=== PATIENT | male | born 1985 | race Caucasian/White ===

== ENCOUNTER 2016-11-02 00:27 | Emergency (ER) ==
--- NOTE | 2016-11-02 00:57 | PROVIDER DOCUMENTATION ---
HPI-Male Problem - General Chief Complaint: Male Stated Complaint: MALE Time Seen by Provider: 11/02/16 00:44 Source: patient Allergies/Adverse Reactions: Patient Allergies Allergy/AdvReac Type Severity Reaction Status Date / Time No Known Allergies Allergy Verified 04/25/16 00:43 Home Medications: Home Medication List Medication Instructions Recorded Confirmed Last Taken Type Aspirin 81 mg PO DAILY 05/10/12 07/25/16 07/25/16 07:00 History 81 MG Mycophenolate Sodium [Myfortic] 180 mg PO BID 05/10/12 07/25/16 07/25/16 07:00 History 180 MG Prednisone 10 mg PO DAILY 05/10/12 07/25/16 07/25/16 07:00 History 10 MG Tacrolimus [Prograf] 1 mg PO BID 05/10/12 07/25/16 07/25/16 07:00 History 1 MG Ondansetron HCl [Zofran] 1 - 2 tab PO Q6H PRN PRN #15 tablet 07/21/16 07/25/16 07/25/16 07:00 Rx 1 - 2 TAB Promethazine [Phenergan] 1 - 2 tab PO Q6H PRN PRN #18 tablet 07/21/16 07/25/16 07/25/16 07:00 Rx 1 - 2 TAB Amlodipine Besylate [Norvasc] 5 mg PO DAILY 07/25/16 07/25/16 07/25/16 07:00 History 5 MG B12/Levomefolate Calcium/B-6 1 tab PO DAILY 07/25/16 07/25/16 07/25/16 07:00 History [Folbic Rf Tablet] 1 TAB Omeprazole 20 mg PO DAILY 07/25/16 07/25/16 07/25/16 07:00 History 20 MG Benzonatate [Tessalon] 100 mg PO TID PRN PRN #30 capsule 07/30/16 Unknown Rx Fluconazole [Diflucan] 400 mg PO ONCE #100 tablet 07/30/16 Unknown Rx - History of Present Illness-Male Nature of Presenting Problem: 31 year old male presents to the ER with complaint of pain to penis and groin. Pt states that during sexual intercourse, he heard a "pop". Now states that it hurts up into groin area. Location of Complaint: reports: groin, scrotal Onset/Duration: reports: last night Timing: reports: still present Review of Systems - Adult - REVIEW OF SYSTEMS - ADULT Constitutional: denies: chills, fever Eyes: reports: no symptoms reported Ears, Nose, Mouth & Throat: reports: no symptoms reported Cardiovascular: reports: no symptoms reported Respiratory: reports: no symptoms reported Gastrointestinal: reports: no symptoms reported Genitourinary: reports: no symptoms reported Musculoskeletal: reports: no symptoms reported Integumentary: reports: no symptoms reported Neurological: reports: no symptoms reported Psychiatric: reports: no symptoms reported Endocrine: reports: no symptoms reported Hematologic/Lymphatic: reports: no symptoms reported Allergic/Immunologic: reports: no symptoms reported All Other Systems: Reviewed and Negative Past History - Adult - PAST MEDICAL HISTORY-ADULT Review of Records: reports: Nursing Assessment Review, Medications Reviewed Major Childhood Illnesses: reports: denies history Cardiovascular: reports: HTN Respiratory: reports: denies history Gastrointestinal: reports: GERD Obstetrical/Gynecological: reports: denies history Genitourinary: reports: kidney disease (2 kidney transplants) Musculoskeletal: reports: denies history Neurological: reports: denies history Endocrine/Immune: reports: denies history Other Conditions: reports: denies history - PRIOR SURGERIES/PROCEDURES Surgical/Procedure History: reports: cholecystectomy, other (2 kidney transplants) - IMMUNIZATION STATUS Childhood Immunizations: See Nurse Assessment Flu Vaccine: See Nurse Assessment - FAMILY HISTORY Family History: reviewed, not pertinent Physical Exam-General - CONSTITUTIONAL General Appearance: alert, no apparent distress - EYES Eyes: PERRL/EOMI, pink conjunctivae - HEAD, EARS, NOSE, MOUTH & THROAT HENMT: normocephalic/atraumatic, moist mucous membranes - NECK Neck: non-tender, supple - RESPIRATORY Respiratory: lungs clear, normal breath sounds - CARDIOVASCULAR Cardiovascular: normal peripheral pulses, regular rate, rhythm - MUSCULOSKELETAL Extremity: non-tender, normal gait - SKIN Integumentary: normal color, warm/dry - NEUROLOGIC Neurologic: grossly normal, no motor/sensory deficits - PSYCHIATRIC Psych/Mental Status: normal mood/affect, normal thought content, normal thought process, oriented x 3 Attestation - Scribe Verification/Attestation Scribe:: Olga Dickinson Acting as Scribe for:: Cortez Berg Scribe documention review:: This chart was documented by a scribe and accurately reflects the service the provider performed and the decisions made by the provider.
[2016-11-02 01:06] LABS: URINE SOURCE VOIDED
[2016-11-02 01:15] LABS: UR AMPHETAMINES QUAL NONE DETECTED (NONE DETECT); UR BARBITUATES QUAL NONE DETECTED (NONE DETECT); UR BENZODIAZEPIN QUAL NONE DETECTED (NONE DETECT); UR CANNABINOIDS QUAL NONE DETECTED (NONE DETECT); UR COCAINE QUAL NONE DETECTED (NONE DETECT); UR MDMA QUAL NONE DETECTED (NONE DETECT); UR METHADONE QUAL NONE DETECTED (NONE DETECT); UR METHAMPHETAMINE QUAL NONE DETECTED (NONE DETECT); UR OPIATES QUAL NONE DETECTED (NONE DETECT); UR OXYCODONE QUAL NONE DETECTED (NONE DETECT); UR PCP QUAL NONE DETECTED (NONE DETECT); UR TCA QUAL NONE DETECTED (NONE DETECT)
[2016-11-02 01:25] LABS: BILIRUBIN URINE NEGATIVE (NEGATIVE); BLOOD URINE NEGATIVE (NEGATIVE); CLARITY CLEAR (CLEAR); COLOR YELLOW; LEUKOCYTES URINE NEGATIVE (NEGATIVE); NITRITE URINE NEGATIVE (NEGATIVE); PROTEIN URINE TRACE mg/dL (NEGATIVE); URINE MICROSCOPIC NEEDED? YES; UROBILINOGEN URINE NORMAL
[2016-11-02 01:28] LABS: URINE EPITHELIAL CELLS <10 /HPF (<10); URINE RBC <10 /HPF (<10); URINE WBC <10 /HPF (<10)
[2016-11-02 03:34] VITALS: BP 159/96
--- NOTE | 2016-11-02 11:09 | Diag Imaging Result Document ---
PROCEDURE NAME: US SCROTUM - 11/02/2016 SCROTAL ULTRASOUND: COMPARISON: None available. FINDINGS: The testicles are grossly normal in echotexture with no cystic or solid parenchymal lesions identified. Both testicles exhibit normal Doppler flow with no sonographic evidence of torsion. The right testicle and left testicle measure up to 3.9 cm in the greatest dimensions. There is a 6-mm left epididymal cyst. The left and right epididymis are grossly unremarkable, otherwise. There is a trace left hydrocele. No varicocele is identified. IMPRESSION: Trace left hydrocele and small left epididymal cyst. Essentially unremarkable, otherwise with no evidence of testicular torsion by ultrasound.
== END 2016-11-02 03:54 | disposition home or self-care (01) ==
LOC: P.ED 00:27
DX: N50.89 Other specified disorders of the male genital organs (principal); N50.82 Scrotal pain; N48.89 Other specified disorders of penis; R10.30 Lower abdominal pain, unspecified; I10 Essential (primary) hypertension; K21.9 Gastro-esophageal reflux disease without esophagitis; Z94.0 Kidney transplant status; Z79.899 Other long term (current) drug therapy; Z79.51 Long term (current) use of inhaled steroids; Z79.82 Long term (current) use of aspirin
CPT/HCPCS: 76870; 80305; 81001

== ENCOUNTER 2019-07-18 11:39 | Inpatient (IN) ==
[2019-07-18] MEDS ORDERED: ZOFRAN IV ONE (12:03)
[2019-07-18] MEDS ORDERED: NS 500 ML IV ONE (12:03)
--- NOTE | 2019-07-18 12:11 | PROVIDER DOCUMENTATION ---
HPI-Syncope/Dizziness - General Chief Complaint: Syncope Stated Complaint: SYNCOPE, FALL Time Seen by Provider: 07/18/19 11:55 Source: patient Allergies/Adverse Reactions: Patient Allergies Allergy/AdvReac Type Severity Reaction Status Date / Time No Known Allergies Allergy Verified 07/18/19 11:50 Home Medications: Home Medication List Medication Instructions Recorded Confirmed Last Taken Type Furosemide 40 mg PO DAILY 07/18/19 07/18/19 Unknown History Levofloxacin [Levaquin] 750 mg PO DAILY 07/18/19 07/18/19 Unknown History Losartan Potassium 25 mg PO DAILY 07/18/19 07/18/19 Unknown History Mycophenolate Sodium [Mycophenolic 180 mg PO BID 07/18/19 07/18/19 Unknown History Acid] Prednisone 10 mg PO DAILY 07/18/19 07/18/19 Unknown History Tacrolimus 0.5 mg PO BID 07/18/19 07/18/19 Unknown History - History of Present Illness-Syncope/Dizzy Nature of Presenting Problem: Patient is a 34 yowm who presents via EMS following a syncopal episode. States he bent over and when he stood back up, he became lightheaded and passed out. Prior to bending over, he states he felt "pop" in the RLQ of his abdomen and still has pain in this region. C/o left rib pain from the fall, did strike his head on wood when he fell. Reports recent diagnosis of pneumonia, completed Levaquin today and states he does not feel better. Hx of 2 renal transplants. Also reports nausea x 2 days, last emesis was yesterday. Denies fever or any other complaints. He is neurologically intact during exam. Review of Systems - Adult - REVIEW OF SYSTEMS - ADULT Constitutional: reports: no symptoms reported. denies: chills, fever Eyes: reports: no symptoms reported Ears, Nose, Mouth & Throat: reports: no symptoms reported Cardiovascular: reports: see HPI, syncope. denies: chest pain, palpitations Respiratory: reports: see HPI, cough Gastrointestinal: reports: see HPI, abdominal pain, nausea, vomiting Genitourinary: reports: no symptoms reported Musculoskeletal: reports: see HPI, other (rib pain). denies: back pain, neck pain Integumentary: reports: no symptoms reported Neurological: reports: see HPI, syncope (head injury). denies: numbness, paresthesia, seizure Psychiatric: reports: no symptoms reported Endocrine: reports: no symptoms reported Hematologic/Lymphatic: reports: no symptoms reported Allergic/Immunologic: reports: no symptoms reported All Other Systems: Reviewed and Negative Past History - Adult - PAST MEDICAL HISTORY-ADULT Review of Records: reports: Nursing Assessment Review, Medications Reviewed, Social history reviewed & non-contributory. Major Childhood Illnesses: reports: denies history Cardiovascular: reports: HTN Respiratory: reports: denies history Gastrointestinal: reports: GERD Obstetrical/Gynecological: reports: denies history Genitourinary: reports: kidney disease (2 kidney transplants) Musculoskeletal: reports: denies history Neurological: reports: denies history Endocrine/Immune: reports: denies history Other Conditions: reports: denies history - PRIOR SURGERIES/PROCEDURES Surgical/Procedure History: reports: cholecystectomy, other (2 kidney transplants) - IMMUNIZATION STATUS Childhood Immunizations: See Nurse Assessment Flu Vaccine: See Nurse Assessment - FAMILY HISTORY Family History: reviewed, not pertinent - SOCIAL HISTORY Smoking: quit less than 1 year Physical Exam-General - PHYSICAL EXAM-ADULT Initial Vital Signs Reviewed: Yes - CONSTITUTIONAL General Appearance: alert, no apparent distress. negative: lethargic, slow to respond - EYES Eyes: PERRL/EOMI, pink conjunctivae - HEAD, EARS, NOSE, MOUTH & THROAT HENMT: normocephalic/atraumatic, moist mucous membranes - NECK Neck: non-tender, full range of motion, supple, normal inspection. negative: C- spine tenderness - RESPIRATORY Respiratory: lungs clear, normal breath sounds, no respiratory distress, no accessory muscle use, other (left rib region tender to palpation) - CARDIOVASCULAR Cardiovascular: normal peripheral pulses, regular rate, rhythm, no edema, no gallop, no JVD, no murmur - GASTROINTESTINAL (ABDOMEN) Abdominal Exam: normal bowel sounds, soft, tenderness (RLQ), McBurney's point tenderness. negative: distended, guarding, rigid, rebound - MUSCULOSKELETAL Back Exam: normal inspection Extremity: normal range of motion, non-tender, normal inspection, pelvis stable - SKIN Integumentary: normal color, warm/dry. negative: cyanosis, diaphoresis, ja undice, mottled, pallor - NEUROLOGIC Neurologic: channel lip wetter II-XII nml as tested, grossly normal, no motor/sensory deficits. negative: facial droop, focal weakness, motor weakness, sensory deficit - PSYCHIATRIC Psych/Mental Status: normal mood/affect, normal thought content, normal thought process, oriented x 3 Progress - PLAN OF CARE/RESULTS Progress/Plan/Lab Results: Vital Signs - 8 hr 07/18/19 11:44 Temperature 97.4 F L Pulse Rate 107 H Respiratory Rate 17 Blood Pressure 110/79 O2 Sat by Pulse Oximetry 98 Laboratory Results - last 24 hr 07/18/19 07/18/19 07/18/19 12:25 12:25 12:25 WBC 12.15 H RBC 2.87 L Hgb 8.3 L Hct 26.5 L MCV 92.3 MCH 28.9 MCHC 31.3 L RDW Std Deviation 15.5 H Plt Count 278 MPV 8.5 Immature Gran % (Auto) 0.7 H Neut % (Auto) 87.6 H Lymph % (Auto) 3.7 L Taylor % (Auto) 6.3 Eos % (Auto) 1.5 Baso % (Auto) 0.2 Immature Gran # (Auto) 0.08 H Neut # (Auto) 10.65 H Lymph # (Auto) 0.45 L Taylor # (Auto) 0.77 H Eos # (Auto) 0.18 Baso # (Auto) 0.02 Sodium 136 Potassium 4.8 Chloride 96 L Carbon Dioxide 21 L Anion Gap 19 BUN 74 H Creatinine 7.6 H Estimated GFR/1.73 m2 8 BUN/Creatinine Ratio 10 Glucose 131 H Calculated Osmolality 296 Calcium 8.7 L Magnesium 2.1 Total Bilirubin 0.20 AST 20 ALT 21 Alkaline Phosphatase 60 Troponin T 0.062 Total Protein 5.9 L Albumin 3.9 Globulin 2.0 Albumin/Globulin Ratio 2.0 Influenza A (Rapid) Influenza B (Rapid) 07/18/19 12:30 WBC RBC Hgb Hct MCV MCH MCHC RDW Std Deviation Plt Count MPV Immature Gran % (Auto) Neut % (Auto) Lymph % (Auto) Taylor % (Auto) Eos % (Auto) Baso % (Auto) Immature Gran # (Auto) Neut # (Auto) Lymph # (Auto) Taylor # (Auto) Eos # (Auto) Baso # (Auto) Sodium Potassium Chloride Carbon Dioxide Anion Gap BUN Creatinine Estimated GFR/1.73 m2 BUN/Creatinine Ratio Glucose Calculated Osmolality Calcium Magnesium Total Bilirubin AST ALT Alkaline Phosphatase Troponin T Total Protein Albumin Globulin Albumin/Globulin Ratio Influenza A (Rapid) NEGATIVE Influenza B (Rapid) NEGATIVE Orders Category Date Time Status Cardiac Monitoring DIRECTED Care 07/18/19 12:03 Active Cardiac Monitoring DIRECTED Care 07/18/19 13:10 Active ED: Orthostatic Vital Signs (E DIRECTED Care 07/18/19 12:03 Active IV Insertion ORDERED Care 07/18/19 13:10 Completed Notify MD of + Sepsis Screen NOW Care 07/18/19 13:10 Active Notify Physician As Ordered Care 07/18/19 13:10 Active Nursing- Obtain EKG ONCE Care 07/18/19 12:03 Active CHEST-2 VIEWS [RAD] Stat Exams 07/18/19 12:[address] ABDOMEN/PELVIS W/O CONTRAST [CT] Stat Exams 07/18/19 12:[address] HEAD W/O CONTRAST [CT] Stat Exams 07/18/19 12:03 Completed RIBS ONLY LEFT [RAD] Stat Exams 07/18/19 12:03 Completed BLOOD CULTURE [BLDCUL] Stat Lab 07/18/19 12:29 Ordered BLOOD CULTURE [BLDCUL] Stat Lab 07/18/19 12:46 Ordered CBC WITH DIFF [HEME] Stat Lab 07/18/19 12:25 Results CK PROFILE [SP CHEM] Stat Lab 07/18/19 13:10 Ordered COMPREHENSIVE METABOLIC PANEL [CHEM] Stat Lab 07/18/19 12:25 Completed Flu [INFLUENZA SCREEN PL] Stat Lab 07/18/19 12:30 Completed LACTATE, PLASMA [CHEM] Lab 07/18/19 12:00 Ordered LACTATE, PLASMA [CHEM] Lab 07/18/19 12:46 Ordered LACTATE, PLASMA [CHEM] Lab 07/18/19 16:15 Uncollected LACTATE, PLASMA [CHEM] Lab 07/18/19 19:15 Uncollected MAGNESIUM [CHEM] Stat Lab 07/18/19 12:25 Completed PROTIME WITH INR [COAG] Stat Lab 07/18/19 12:46 Ordered PTT [COAG] Stat Lab 07/18/19 12:46 Ordered TROPONIN T Stat Lab 07/18/19 12:25 Completed TROPONIN T Stat Lab 07/18/19 12:46 Ordered UA NIMS W/REFLEX CULT [URINALYSIS] Stat Lab 07/18/19 12:03 Uncollected URINALYSIS W/POSS RFLX CULT [URINALYSIS] Stat Lab 07/18/19 13:10 Uncollected 0.9% Sodium Chloride Inj [Ns] 1,000 ml Med 07/18/19 12:15 Active IV 100 mls/hr 0.9% Sodium Chloride Inj [Ns] 500 ml Med 07/18/19 12:03 Discontinued IV 999 mls/hr CefTRIAXONE [Rocephin] 1 gm Med 07/18/19 13:00 Active 0.9% Sodium Chloride Inj [Ns] 50 ml IV NOW Ondansetron [Zofran] Med 07/18/19 12:03 Discontinued 4 mg IV NOW ONE Piperacillin/Tazobactam [Zosyn] 2.25 gm Med 07/18/19 13:01 Active 0.9% Sodium Chloride Inj [Ns] 50 ml IV NOW Oxygen Device Stat Oth 07/18/19 13:10 Active EKG [EKG] Stat Ther 07/18/19 12:03 Draft Result Diagrams: 07/18/19 12:25 07/18/19 12:25 - EKG 1 Time of EKG reading by physician:: 12:30 EKG Read and Signed by:: Jeramy Wadsworth EKG Interpretation (*Must complete 3 of following elements*): Abnormal Rate: 112 Rhythm: sinus tachycardia QRS: normal ST Wave: normal - XRAY 1 XRAY Study: Chest ([facility] - [address] [place] [address] [place] [id number] [facility] - [address] [place] [address] Department of Imaging Patient: SARATH COLE Date: 07/18/19#: [id number] : 1985ADM Status: REG [facility]#: [id number] Age/Sex: 34/MRoom/Bed: Loc: P.ED Ordering Physician: Santa Galdamez Family Physician: None,PCP Reason for Procedure: recent pne, syncope, continued cough Signed CHEST-2 VIEWS - 07/18/2019 INDICATION: recent pne, syncope, continued cough COMPARISON: 07/11/2019 FINDINGS: There is significant infiltrate throughout the right upper lobe. There is also some hazy infiltrate in the left upper lobe. Stable nodular density in the left lung base. Heart size is normal. No pneumothorax or pleural effusion. IMPRESSION: 1. Significant worsening infiltrates in the upper lobes bilaterally suggesting atypical or viral pneumonia. 2. Stable long- standing pulmonary nodule in the left lung base. Electronically signed by Arnie Mallory 07/18/2019 12:50 PM 07/18/19 1250 Interpreting Physician: Arnie Mallory MD Dictated Date/Time: 07/18/19 1249 cc: Santa Galdamez; None,PCP) 2 XRAY: Left XRAY Study: Ribs ([facility] - [address] [place] [address] [address] [address] [facility] - [address] [place] [address] Department of Imaging Patient: SARATH COLE Date: 07/18/19MR#: [id number] : 1985ADM Status: REG ERAcct#: [id number] Age/Sex: 34/MRoom/Bed: Loc: P.ED Ordering Physician: Santa Galdamez Family Physician: None,PCP Reason for Procedure: fall, left rib pain ___ Signed RIBS ONLY LEFT - 07/18/2019 INDICATION: fall, left rib pain TECHNIQUE: Four views COMPARISON: None FINDINGS: The left-sided ribs are intact and well mineralized. IMPRESSION: Negative exam. Electronically signed by Arnie Mallory 07/18/2019 12:52 PM 07/18/19 1252 Interpreting Physician: Arnie Mallory MD Dictated Date/Time: 07/18/19 1251 cc: Santa Galdamez; None,PCP), other - CT/MRI 1 CT Study: Head ([facility] - [address], [address], [place] [address] [address] Department of Imaging Patient: SARATH COLE Date: 07/18/19MR#: [id number] : 1985ADM Status: [facility]#: [id number] Age/Sex: 34/MRoom/Bed: Loc: P.ED Ordering Physician: Santa Galdamez Family Physician: None,PCP Reason for Procedure: trauma Signed CT HEAD W/O CONTRAST - 07/18/2019 INDICATION: trauma COMPARISON: 07/30/2016 FINDINGS: The ventricles and sulci are normal in size and contour. No intracranial mass or hemorrhage. The skull is intact. There is severe fluid opacification of both sphenoid sinuses compatible with sinusitis. The mastoids and middle ears are clear. IMPRESSION: Bilateral sphenoid sinusitis. No acute injury. This exam was performed using automated exposure control, adjustment of mA or kV according to patient size, and/or use of iterative reconstruction technique Electronically signed by Arnie Mallory 07/18/2019 12:44 PM 07/18/19 1244 Interpreting Physician: Arnie Fields MD Dictated Date/Time: 07/18/19 1243 cc: Santa Galdamez; None,PCP) 2 CT Study: Abdomen, Pelvis ([facility] - [address], [address], [place] [address] [facility] - [address] [place] [address] Department of Imaging Patient: SARATH COLE Date: 07/18/19#: [id number] : 1985ADM Status: REG [facility]#: [id number] Age/Sex: 34/MRoom/Bed: Loc: P.ED Ordering Physician: Santa Galdamez Family Physician: None,PCP Reason for Procedure: RLQ pain/tenderness ___ Signed CT ABDOMEN/PELVIS W/O CONTRAST - 07/18/2019 INDICATION: RLQ pain/tenderness COMPARISON: 01/03/2013 FINDINGS: There are couple small infiltrates in the lower lobes. There is also a stable pulmonary nodule in the left lower lobe measuring about 6 mm. Anemia is present. Stable cholecystectomy changes. Stable severe atrophy of the [place] kidneys. There is also severe atrophy of the transplanted right kidney. The transplanted left kidney appears normal in contour. No bowel obstruction or inflammation. Normal appendix. There is moderate constipation distally. Urinary bladder, prostate, and rectum are normal. Bones are intact and well mineralized. IMPRESSION: Mild to moderate constipation. Other nonspecific findings described above. This exam was performed using automated exposure control, adjustment of mA or kV according to patient size, and/or use of iterative reconstruction technique Electronically signed by Arnie Mallory 07/18/2019 12:48 PM 07/18/19 1248 Interpreting Physician: Arnie Mallory MD Dictated Date/Time: 07/18/19 1244 cc: Santa Galdamez; None,PCP) - CONSULTS/PCP/HOSPITALIST Notification #1 *Consult/PCP/Hospitalist*: Dr. Jamison Time Discussed: 13:20 Reason/Comments: admission-CAP,syncope,failed outpatient tx Consult Disposition: Admit (Dr. Jamison accepted admit, will see pt in the ED and enter orders.) Departure - Departure Date of Disposition Decision: 07/18/19 Time of Disposition Decision: 13:27 DIAGNOSIS: Renal insufficiency, Failure of outpatient treatment Pneumonia Qualifiers: Pneumonia type: due to unspecified organism Laterality: bilateral Lung location: unspecified part of lung Qualified Code(s): J18.9 - Pneumonia, unspecified organism Syncope Qualifiers: Syncope type: unspecified Qualified Code(s): R55 - Syncope and collapse Abdominal pain Qualifiers: Abdominal location: right lower quadrant Qualified Code(s): R10.31 - Right lower quadrant pain Disposition: ADMITTED INPATIENT 09 Certified Medical Emergency: Emergent Condition: Stable Referrals and Follow-Ups: None,PCP [Primary Care Provider] - - Critical Care Note This patient required my direct & personal management of CC.: No Attestation - Physician/ MARY Attestation Patient care was provided by Advanced Practice Provider:: Yes Advanced Practice Provider:: Santa Galdamez Advanced Practice Provider documentation review:: The Mid-level provider documentation, treatment plan and medical decision making was reviewed by the physician who agrees with all treatment and medical decision making by the P. The physician spent face to face time with patient:: No Advanced Practice Provider documentation review:: Supervising physician onsite and consulted in the evaluation and care of this patient. The physician did not have a face to face encounter with the patient.
[2019-07-18] MEDS ORDERED: NS 1,000 ML IV ONE (12:15)
--- NOTE | 2019-07-18 12:40 | EKG Report ---
Test Performed on : 07/18/2019 12:30:55 PM Test Reason : CP Blood Pressure : / mmHG Vent. Rate : 112 BPM Atrial Rate : 112 BPM P-R Int : 138 ms QRS Dur : 084 ms QT Int : 322 ms P-R-T Axes : 031 078 045 degrees QTc Int : 439 ms Sinus tachycardia. Possible Left atrial enlargement Borderline ECG When compared with ECG of 12-JUL-2019 22:06, (Unconfirmed) QRS axis shifted left Criteria for Lateral infarct are no longer present Unconfirmed Result
--- NOTE | 2019-07-18 12:46 | Diag Imaging Result Doc PS360 ---
CT HEAD W/O CONTRAST - 07/18/2019 INDICATION: trauma COMPARISON: 07/30/2016 FINDINGS: The ventricles and sulci are normal in size and contour. No intracranial mass or hemorrhage. The skull is intact. There is severe fluid opacification of both sphenoid sinuses compatible with sinusitis. The mastoids and middle ears are clear. IMPRESSION: Bilateral sphenoid sinusitis. No acute injury. This exam was performed using automated exposure control, adjustment of mA or kV according to patient size, and/or use of iterative reconstruction technique Electronically signed by Arnie Mallory 07/18/2019 12:44 PM
--- NOTE | 2019-07-18 12:50 | Diag Imaging Result Doc PS360 ---
CT ABDOMEN/PELVIS W/O CONTRAST - 07/18/2019 INDICATION: RLQ pain/tenderness COMPARISON: 01/03/2013 FINDINGS: There are couple small infiltrates in the lower lobes. There is also a stable pulmonary nodule in the left lower lobe measuring about 6 mm. Anemia is present. Stable cholecystectomy changes. Stable severe atrophy of the [place] kidneys. There is also severe atrophy of the transplanted right kidney. The transplanted left kidney appears normal in contour. No bowel obstruction or inflammation. Normal appendix. There is moderate constipation distally. Urinary bladder, prostate, and rectum are normal. Bones are intact and well mineralized. IMPRESSION: Mild to moderate constipation. Other nonspecific findings described above. This exam was performed using automated exposure control, adjustment of mA or kV according to patient size, and/or use of iterative reconstruction technique Electronically signed by Arnie Mallory 07/18/2019 12:48 PM
--- NOTE | 2019-07-18 12:53 | Diag Imaging Result Doc PS360 ---
CHEST-2 VIEWS - 07/18/2019 INDICATION: recent pne, syncope, continued cough COMPARISON: 07/11/2019 FINDINGS: There is significant infiltrate throughout the right upper lobe. There is also some hazy infiltrate in the left upper lobe. Stable nodular density in the left lung base. Heart size is normal. No pneumothorax or pleural effusion. IMPRESSION: 1. Significant worsening infiltrates in the upper lobes bilaterally suggesting atypical or viral pneumonia. 2. Stable long-standing pulmonary nodule in the left lung base. Electronically signed by Arnie Mallory 07/18/2019 12:50 PM
--- NOTE | 2019-07-18 12:54 | Diag Imaging Result Doc PS360 ---
RIBS ONLY LEFT - 07/18/2019 INDICATION: fall, left rib pain TECHNIQUE: Four views COMPARISON: None FINDINGS: The left-sided ribs are intact and well mineralized. IMPRESSION: Negative exam. Electronically signed by Arnie Mallory 07/18/2019 12:52 PM
[2019-07-18 12:58] LABS: BASO# 0.02 X1000 (0.0-0.2); BASO% 0.2 % (0.0-0.8); EOS# 0.18 X1000 (0.0-0.7); EOS% 1.5 % (0.0-10.0); HEMATOCRIT 26.5 % (42.0-52.0); HEMOGLOBIN 8.3 g/dL (14.0-18.0); IMM GRAN# 0.08 X1000 (0.0-0.04); IMM GRAN% 0.7 % (0.0-0.5); LYMPH# 0.45 X1000 (1.2-3.4); LYMPH% 3.7 % (20.5-51.1); MCH 28.9 PG (27-31); MCHC 31.3 g/dL (33-37); MCV 92.3 FL (81-99); MONO# 0.77 X1000 (0.11-0.59); MONO% 6.3 % (1.7-9.3); MPV 8.5 FL (7.4-10.4); NEUT# 10.65 X1000 (1.4-6.5); NEUT% 87.6 % (42.2-75.2); PLT 278 X1000 (130-400); RBC 2.87 XMIL (4.7-6.1); RDW 15.5 % (11.5-14.5); WBC 12.15 X1000 (4.8-10.8)
[2019-07-18] MEDS ORDERED: ROCEPHIN 1 GM in NS 50 ML IV ONE (13:00)
[2019-07-18] MEDS ORDERED: ZOSYN 2.25 GM in NS 50 ML IV ONE (13:01)
[2019-07-18 13:13] LABS: INFLUENZA A NEGATIVE (NEGATIVE); INFLUENZA B NEGATIVE (NEGATIVE)
[2019-07-18 13:15] LABS: ALBUMIN 3.9 g/dL (3.5-5.0); CALCIUM 8.7 mg/dL (8.8-10.2); CREATININE 7.6 mg/dL (0.7-1.2); MAGNESIUM 2.1 mg/dL (1.5-2.7); POTASSIUM 4.8 mmol/L (3.5-5.1); TOTAL BILIRUBIN 0.2 mg/dL (0.20-1.00); TOTAL PROTEIN 5.9 g/dL (6.3-8.3)
[2019-07-18 13:39] LABS: INR 1.11; PROTIME 14.9 Seconds (11.0-16.0)
[2019-07-18 13:40] LABS: PTT 35.5 Seconds (22.3-41.8)
[2019-07-18 13:41] LABS: LYMPHS 4 % (21-51); MONO 6 % (1-9); SEGS 90 % (42-75)
[2019-07-18 14:36] LABS: CK INDEX 0.8 (0.0-2.5); CK-MB 1.98 ng/mL (0.0-5.0)
[2019-07-18 15:18] LABS: URINE SOURCE CLEAN CATCH
[2019-07-18 15:22] LABS: BILIRUBIN URINE NEGATIVE (NEGATIVE); BLOOD URINE TRACE (NEGATIVE); COLOR STRAW; GLUCOSE URINE NEGATIVE (NEGATIVE); KETONE URINE NEGATIVE (NEGATIVE); LEUKOCYTES URINE NEGATIVE (NEGATIVE); NITRITE URINE NEGATIVE (NEGATIVE); PH URINE 6.5; PROTEIN URINE 70 mg/dL (NEGATIVE); SP GRAVITY URINE 1.012; TURBIDITY URINE CLEAR (CLEAR); UR EPITHELIAL CELLS <10 /HPF (<10); URINE BACTERIA NEGATIVE /HPF; URINE RBC <10 /HPF (<10); URINE WBC <10 /HPF (<10); UROBILINOGEN URINE NORMAL (NORMAL)
--- NOTE | 2019-07-18 18:26 | HISTORY AND PHYSICAL ---
PRIMARY CARE PHYSICIAN: None. CHIEF COMPLAINT: Of a syncopal episode, also having a cough, recently treated for a pneumonia completed his Levaquin today but not feeling any better. HISTORY OF PRESENTING ILLNESS: This is a 34-year-old male who presents to [facility] ER after he states he bent over and then stood back up, became lightheaded and passed out. Complained of left rib pain from the fall and did strike his head on wood when he fell. He states he was recently diagnosed with pneumonia and completed his course of Levaquin today taking his last dose but states he does not feel any better. Also reports having nausea for the last 2 days with last emesis yesterday. He is noted to be a bilateral renal transplant patient also. Workup showed a white blood cell count of 12.15, BUN is 74 with a creatinine of 7.6. His baseline appears to be anywhere from 2.5 to 4, was up to 6.3 on 07/12/2019 now up to 7.6. His chest x-ray shows significant worsening infiltrates in the upper lobes bilaterally suggesting atypical or viral pneumonia and a stable longstanding pulmonary nodule in the left lung base. We did do a rib x-ray that showed a negative exam. We also did a CT of the head that showed bilateral sphenoid sinusitis so he will be admitted for further evaluation and treatment. PAST MEDICAL HISTORY: Of hypertension, GERD, chronic kidney disease, history of dialysis in 2006 prior to his renal transplant. PAST SURGICAL HISTORY: Of renal transplant bilaterally, a cholecystectomy. FAMILY HISTORY: Reviewed and noncontributory. SOCIAL HISTORY: Currently lives with family. Was a half a day a pack smoker but quit approximately 1 month ago. Denied any alcohol or illicit drug use. ALLERGIES: He has no known drug allergies. HOME MEDICATIONS: We will hold Lasix 40 mg p.o. daily, Levaquin 750 mg p.o. daily and losartan 25 mg p.o. daily. We will continue his mycophenolate 180 mg p.o. b.i.d., prednisone 10 mg p.o. daily and tacrolimus 0.5 mg p.o. b.i.d. LABORATORY DATA: Showed a white blood cell count of 12.15, hemoglobin 8.3, hematocrit 26.5, platelets 278,000. PT and INR of 14.9 and 1.11. Sodium 136, potassium 4.8, chloride 96, CO2 21, BUN of 74, creatinine 7.6, glucose 131, magnesium 2.1, creatine kinase of 264, CK-MB of 1.98, troponin 0.062, plasma lactate of 1.4. Influenza A and B are both negative. Chest x-ray showed significant worsening infiltrates in the upper lobes bilaterally suggesting an atypical or viral pneumonia and this was compared to 07/11/2019. Also a stable longstanding pulmonary nodule in the left lung base. Head CT showed bilateral sphenoid sinusitis and no acute injury. Left rib x-ray was negative. CT of the abdomen and pelvis showed a mild to moderate constipation. REVIEW OF SYSTEMS: He denied any fever, chills, blurred vision. He did have dizziness, lightheadedness, had a syncopal episode, had left rib pain from the fall, a productive cough, some mild shortness of breath, nausea, vomiting. Denied any abdominal pain. He is positive for constipation. Denies any diarrhea or burning or hurting with urination. PHYSICAL EXAMINATION: On arrival he had a temperature of 97.4 degrees, pulse 107, respirations 17, blood pressure 110/79, saturating 98% on room air. GENERAL: This is a 34-year-old male who is lying in the bed and answers questions appropriately. HEENT: Normocephalic, atraumatic. Normal ENT inspection. Oropharynx and nares are clear. Pupils are equal, round, reactive to light, accommodation. Extraocular movements are intact. NECK: Normal inspection, normal range of motion. LUNGS: With some scattered expiratory wheezing bilaterally, equal lung expansion, chest wall movement noted. HEART: Regular rate and rhythm. No murmurs, rubs, or gallops. ABDOMEN: Soft, nontender, nondistended. Bowel sounds were present x4 quadrants. MUSCULOSKELETAL: He had 5/5 strength x4 extremities. NEUROLOGICAL: The cranial nerves 2-12 appear grossly intact. ASSESSMENT: 1. Bilateral pneumonia with failed outpatient treatment. 2. Syncope. 3. An acute on chronic kidney disease. 4. Bilateral sphenoid sinusitis. 5. Tobacco abuse. OUR PLAN: He will be admitted to the [facility] placed on telemetry, O2 per protocol, placed on a renal diet. Will consult Nephrology. Place on incentive spirometry. Place on Rocephin 1 gram IV q.24, azithromycin 500 IV q.24, DuoNeb q.4 hours, normal saline at 125 mL an hour, continue home medications as previously identified. Recheck a CBC, BMP in the a.m. and further orders after seen by attending and by knowledge management consultant. Again, he will be admitted to the [facility] to the medical floor. Dictated by JAMIE Hdez for Almas Jamison MD cc: JAMIE Hdez MD
[2019-07-18] MEDS ORDERED: TYLENOL PO PRN (19:19)
[2019-07-18] MEDS: DUONEB (A & A) INH SCH ×3 (19:20→23:02)
[2019-07-18] MEDS ORDERED: NORCO-7.5 PO ONE (19:40)
[2019-07-18] MEDS: NS 1,000 ML IV SCH (19:52)
[2019-07-18] MEDS: ZITHROMAX 500 MG/NS 500 MG/250 ML IVPB IV SCH (21:30)
[2019-07-18] MEDS: PROGRAF PO SCH (21:30)
[2019-07-18] MEDS: ZOFRAN IV PRN (21:34)
[2019-07-18] MEDS: TESSALON PO PRN (22:13)
[2019-07-19] MEDS: ZOFRAN IV PRN (01:05)
[2019-07-19] MEDS ORDERED: NORCO-5 PO PRN (02:00)
[2019-07-19] MEDS: DUONEB (A & A) INH SCH ×6 (03:22→22:50)
[2019-07-19] MEDS: NS 1,000 ML IV SCH ×3 (04:55→10:39)
--- NOTE | 2019-07-19 07:13 | HISTORY AND PHYSICAL ---
ADDENDUM: The patient was seen and examined by myself. Full note dictated and discussed with nurse practitioner. The patient is a 34-year-old male who notes that he became lightheaded, passed out at work after bending over. He has had increased cough and congestion, increased work of breathing. He has recently been treated for pneumonia, but does not feel as though he has gotten any better. We are going to place him in the hospital, place him on antibiotics. His creatinine is elevated at 7. I am certainly going to address this given that he is a transplant patient, and will follow. Currently, he is awake, alert. He is in mild respiratory distress, very pleasant. cc: Almas Jamison MD
[2019-07-19 07:34] LABS: BASO# 0.01 X1000 (0.0-0.2); BASO% 0.1 % (0.0-0.8); EOS# 0.25 X1000 (0.0-0.7); EOS% 3.3 % (0.0-10.0); HEMATOCRIT 25.4 % (42.0-52.0); IMM GRAN# 0.05 X1000 (0.0-0.04); IMM GRAN% 0.7 % (0.0-0.5); LYMPH# 0.96 X1000 (1.2-3.4); LYMPH% 12.9 % (20.5-51.1); MCH 29.1 PG (27-31); MCHC 31.5 g/dL (33-37); MCV 92.4 FL (81-99); MONO# 0.58 X1000 (0.11-0.59); MONO% 7.8 % (1.7-9.3); MPV 8.4 FL (7.4-10.4); NEUT# 5.62 X1000 (1.4-6.5); NEUT% 75.2 % (42.2-75.2); PLT 260 X1000 (130-400); RBC 2.75 XMIL (4.7-6.1); WBC 7.47 X1000 (4.8-10.8)
[2019-07-19 07:52] LABS: CALCIUM 8.4 mg/dL (8.8-10.2); CREATININE 7.7 mg/dL (0.7-1.2); POTASSIUM 4.4 mmol/L (3.5-5.1)
[2019-07-19] MEDS: PREDNISONE PO SCH (08:12)
[2019-07-19] MEDS: PROGRAF PO SCH ×2 (08:12→19:47)
[2019-07-19] MEDS: PATIENT'S OWN MED PO SCH (08:13)
[2019-07-19] MEDS: ROCEPHIN 1 GM in NS 50 ML IV SCH (12:21)
[2019-07-19 15:28] LABS: URINE SOURCE VOIDED
[2019-07-19 15:36] LABS: BILIRUBIN URINE NEGATIVE (NEGATIVE); BLOOD URINE TRACE (NEGATIVE); COLOR STRAW; GLUCOSE URINE 100 mg/dL (NEGATIVE); KETONE URINE NEGATIVE (NEGATIVE); LEUKOCYTES URINE NEGATIVE (NEGATIVE); NITRITE URINE NEGATIVE (NEGATIVE); PH URINE 6.5; PROTEIN URINE TRACE mg/dL (NEGATIVE); SP GRAVITY URINE 1.006; TURBIDITY URINE CLEAR (CLEAR); UROBILINOGEN URINE NORMAL (NORMAL)
[2019-07-19 15:41] LABS: UR EPITHELIAL CELLS <10 /HPF (<10); URINE BACTERIA NEGATIVE /HPF; URINE RBC <10 /HPF (<10); URINE WBC <10 /HPF (<10)
[2019-07-19 16:04] LABS: UR CREAT RANDOM 28.6 mg/dL (14-26); UR PROT RANDOM 14.6 mg/dL
--- NOTE | 2019-07-19 17:59 | PROGRESS NOTE ---
DATE: 07/19/2019 SUBJECTIVE: Has no primary care physician. He presented having cough. Recently treated for pneumonia and completed his Levaquin but was not feeling any better. He is a 34-year-old white male presented to [facility] bent over, stood back, became lightheaded, and he passed out. Complained of left rib pain from the fall. He did strike his head on the wood when he fell. He was recently diagnosed with pneumonia. He had a course of Levaquin. He is status post bilateral renal transplant. Showed a white blood cell count 12,150, BUN 74, creatinine 7.6. So, admitted with bilateral pneumonia. He had acute on chronic kidney disease, bilateral sphenoid sinusitis, and tobacco use. OBJECTIVE: Vital Signs: Temperature 98.0 degrees, pulse 98, respirations 16, blood pressure 143/75. HEENT: Pupils are equal and round. Lungs: Clear in all lung busch. Cardiovascular: Regular rhythm and rate without murmur or S3. Urine output is 3,200 mL. ASSESSMENT: 1. Bilateral pneumonia, failed outpatient treatment. 2. Syncope secondary to pneumonia. 3. Acute on chronic kidney disease. 4. Bilateral sphenoid sinusitis. 5. Tobacco use. PLAN: The patient is on Rocephin, azithromycin, getting DuoNeb. Review of his orders, I do not see any change. He is taking his tacrolimus 0.5 mg b.i.d., Zosyn 2.25 g, was given 1 dose. He was given ceftriaxone 1 dose in the emergency room and now he gets 1 g q.24 hours. Review of lab, I do not see any change. Note that his creatinine is 7.7. Dr. Chan is following. His volume status looks okay. Electrolytes otherwise look okay and his acid-base status looks okay as well. He has an anemia, appears to be stable. Hematocrit 25, hemoglobin 8. cc: Sterling Del Rio MD
--- NOTE | 2019-07-19 18:48 | PROVIDER PROGRESS NOTE ---
Progress Note Chief complaint: Rere got pneumonia. HPI: Mr. 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 He voices his baseline Creatinine around 5. He has had upper respiratory symptoms that include shortness of breath, non productive cough, dizziness, and post nasal drip for 3 weeks. He also says he has had a decreased appetite along with his respiratory symptoms. He came to [place] ED on 07/13 for these symptoms and was given a script for PO levaquin which he completed yesterday. While at work yesterday he had vomited twice and began coughing violently which led to him feeling dizzy and having a stomach cramp. He then says he had a syncopal episode with a brief loss of consciousness. EMS brought him to the ED where due to his respiratory distress and elevated Creatinine he was admitted. Past medical history: left and right kidney transplant, hypertension, tobacco abuse. Past surgical history: cholecystectomy, left kidney transplant 2006, right kidney transplant 2009 Social history: was at home with and kids. He smokes about four packs a week and drinks socially. He denies any illicit drugs. Family history: Mother positive for heart disease. Allergies: No known Home medications: furosemide, losartan, prednisone, tacrolimus, mycophenolate sodium Review of systems: neurological: denies altered mental status or confusion. Admits to dizziness. Eyes: denies blurriness, dryness, or change in visual acuity. ENT: denies tinnitus or change in hearing. Integumentary: denies any erythema, rash, or itching. Respiratory: Admits to shortness of breath and orthopnea. Admits to non-productive cough. Cardiovascular: denies palpitations or chest pain. G.I.: Denies nausea, vomiting, or abdominal pain. : denies change in flow, color, or amount, odor. Endocrine: Denies excessive thirst and hunger. Musculoskeletal: denies increased weakness or extremity pain. Labs: WBC 7.47, hemoglobin 8, hematocrit 25.4, platelet count 260, sodium 139, potassium 4.4, chloride 102, carbon dioxide 20, BUN 71, creatinine 7.7. Intake 120, output zero recorded. Imaging: chest x-ray impression significant worsening infiltrates in the upper lobes bilaterally suggesting atypical or viral pneumonia. Stable long-standing pulmonary nodule in the left lung base. CT of the abdomen pelvis without contrast impression mild to moderate constipation. Physical exam: temp 97.8, pulse 91, respirations 20, blood pressure 145/82, O2 sat 100% on room air. General: middle aged white male Lying in bed in no acute distress HEENT: normocephalic, atraumatic, pupils equal and reactive. Mucous membranes moist. Skin: warm and dry. Neck: supple, 8 cm jvd noted Cardiovascular: s1s2 regular rate and rhythm, no murmur or gallop. Respiratory: clear but diminished anteriorly. Abdominal: soft, nontender, nondistended, bowel sounds present : non inspected Extremities: No clubbing, cyanosis, or edema noted. Neurologic: alert and oriented to person, place, and time. Assessment and plan: Acute on chronic kidney disease status post bilateral kidney transplant. I spoke with the transplant nephrology service at [facility]. 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 His last creatinine at [facility] was from November at 4. Last biopsy in late 2018. No recommendation for increased immunosupression. Likely end stage kidney disease. Blood pressure. Stable. Fluid volume. Positive JVD, no edema. Receiving IVF. Stop fluids. Anemia. Low, does not meet transfusion criteria. Electrolytes and acid base balance. Metabolic acidosis present.
[2019-07-19] MEDS: ZITHROMAX 500 MG/NS 500 MG/250 ML IVPB IV SCH (19:48)
[2019-07-19] MEDS: TESSALON PO PRN (21:45)
[2019-07-20] MEDS: ZOFRAN IV PRN (01:18)
[2019-07-20] MEDS: DUONEB (A & A) INH SCH ×6 (03:36→23:18)
[2019-07-20] MEDS: PROGRAF PO SCH ×3 (04:30→23:22)
[2019-07-20] MEDS: PATIENT'S OWN MED PO SCH ×3 (04:30→23:22)
[2019-07-20 09:01] LABS: ALBUMIN 3.3 g/dL (3.5-5.0); CALCIUM 8.9 mg/dL (8.8-10.2); CREATININE 7.2 mg/dL (0.7-1.2); PHOSPHORUS 5.8 mg/dL (2.7-4.5); POTASSIUM 4.3 mmol/L (3.5-5.1)
[2019-07-20] MEDS: PREDNISONE PO SCH (09:03)
[2019-07-20 09:14] LABS: HEMATOCRIT 24.5 % (42.0-52.0); HEMOGLOBIN 7.7 g/dL (14.0-18.0); MCH 28.9 PG (27-31); MCHC 31.4 g/dL (33-37); MCV 92.1 FL (81-99); MPV 8.4 FL (7.4-10.4); RBC 2.66 XMIL (4.7-6.1); RDW 14.9 % (11.5-14.5); WBC 5.58 X1000 (4.8-10.8)
--- NOTE | 2019-07-20 10:21 | PROVIDER PROGRESS NOTE ---
Progress Note Subjective: Voices feeling better during the day yesterday but at night he felt he was having some labored breathing. Objective: temp 98.2, pulse 102, respirations 18, blood pressure 148/90, 02 sat 100% on room air. General: middle aged white male Lying in bed in no acute distress HEENT: normocephalic, atraumatic, pupils equal and reactive. Mucous membranes moist. Skin: warm and dry. Neck: supple, 8 cm jvd noted Cardiovascular: s1s2 regular rate and rhythm, no murmur or gallop. Respiratory: Expiratory wheezes bilaterally Abdominal: soft, nontender, nondistended, bowel sounds present : non inspected Extremities: No clubbing, cyanosis, or edema noted. Neurologic: alert and oriented to person, place, and time. Labs: input 1790, output two unmeasured voids. Sodium 137, potassium 4.3, chloride 103, carbon dioxide 19, BUN 63, creatinine 7.2. Assessment and plan: Acute on chronic kidney disease status post kidney transplant. Likely has progression of kidney disease. His Creatinine is down to 7.2 today. We spoke about starting HD for a short term plan with prison plan dependent on labs and symptoms. Renal function is not improved so will consult surgery for tunneled catheter. Blood pressure. Stable. Fluid volume. Expanded. Will order lasix. Anemia. Low, does not meet transfusion criteria. Electrolytes and acid base balance. Metabolic acidosis present. Will start PO sodium bicarbonate.
[2019-07-20] MEDS ORDERED: TUMS PO ONE (14:07)
[2019-07-20] MEDS: ROCEPHIN 1 GM in NS 50 ML IV SCH (14:25)
[2019-07-20] MEDS ORDERED: LASIX PO ONE (15:03)
--- NOTE | 2019-07-20 15:59 | PROGRESS NOTE ---
DATE: 07/20/2019 SUBJECTIVE: Mr. Amos feels better, and breathing is doing better. We talked about maybe being discharged tomorrow. OBJECTIVE: Vital Signs: Temperature 98.1 degrees, pulse 105, respirations 20, blood pressure 144/82. HEENT: Pupils are equal and round. Lungs: Clear in all lung busch. Cardiovascular: Regular rhythm and rate without murmur or S3. Abdomen: Soft. Skin: Warm and dry. Urine Output: 3200 mL. ASSESSMENT AND PLAN: 1. Acute on chronic kidney disease, status post kidney transplant. Likely has progression of kidney disease. His creatinine has come down to 7.2, and I talked about maybe starting short- term hemodialysis with long-term plan. Dr. Chan following. 2. Blood pressure, stable. 3. Fluid volume, stable. 4. Anemia, low. Does not meet criteria for transfusion. 5. Bilateral sphenoid sinusitis and bilateral pneumonia, which failed outpatient treatment. Continue current medications and continue his tacrolimus 0.5 mg b.i.d., calcium carbonate 500 mg, and I think he got 1 dose of that. Ceftriaxone 1 gram IV every 24 hours. cc: Sterling Del Rio MD
[2019-07-20] MEDS: ZITHROMAX 500 MG/NS 500 MG/250 ML IVPB IV SCH (23:23)
[2019-07-21] MEDS: DUONEB (A & A) INH SCH ×4 (03:18→16:23)
[2019-07-21 04:15] LABS: HEMATOCRIT 24.7 % (42.0-52.0); HEMOGLOBIN 7.8 g/dL (14.0-18.0); MCHC 31.6 g/dL (33-37); MCV 91.8 FL (81-99); MPV 8.3 FL (7.4-10.4); RBC 2.69 XMIL (4.7-6.1); RDW 14.9 % (11.5-14.5); WBC 6.79 X1000 (4.8-10.8)
[2019-07-21 04:23] LABS: ALBUMIN 3.4 g/dL (3.5-5.0); CALCIUM 9.2 mg/dL (8.8-10.2); CREATININE 6.9 mg/dL (0.7-1.2); POTASSIUM 4.2 mmol/L (3.5-5.1)
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
--- NOTE | 2019-07-21 10:48 | Diag Imaging Result Doc PS360 ---
EXAM: CHEST-2 VIEWS - 07/21/2019 HISTORY: pneumonia TECHNIQUE: Chest two view COMPARISON: 07/18/2019 FINDINGS: Heart size is normal. There are bilateral upper lobe infiltrates, most prominent on the right, which appears stable. There is a nodular density at the medial left base which is stable. There is no pleural effusion or pneumothorax identified. IMPRESSION: Stable exam compared to 07/18/2019. Electronically signed by Berry Kennedy 07/21/2019 10:45 AM
[2019-07-21] MEDS: PREDNISONE PO SCH (12:43)
[2019-07-21] MEDS: PROGRAF PO SCH (12:43)
[2019-07-21] MEDS: PATIENT'S OWN MED PO SCH (12:43)
[2019-07-21] MEDS: ROCEPHIN 1 GM in NS 50 ML IV SCH (12:44)
[2019-07-21 14:43] VITALS: BP 121/70
--- NOTE | 2019-07-21 15:16 | PROVIDER PROGRESS NOTE ---
Progress Note Subjective: Voices feeling ok, denies anynuremic complaints. Objective: temp 97.9, pulse 95, respirations 18, blood pressure 122/76, 02 sat 99% on room air. General: middle aged white male Lying in bed in no acute distress HEENT: normocephalic, atraumatic, pupils equal and reactive. Mucous membranes moist. Skin: warm and dry. Neck: supple, 8 cm jvd noted Cardiovascular: s1s2s4. No murmur noted. Respiratory: occasional expiratory wheezes left lobe anterior Abdominal: soft, nontender, nondistended, bowel sounds present : non inspected Extremities: No clubbing, cyanosis, edema. Neurologic: alert and oriented to person, place, and time. Labs: intake 1250, output 5600. WBC 6.79, hemoglobin 7.8, hematocrit 24.7, platelet count 263, sodium 137, potassium 4.2, chloride 100, carbon dioxide 19, BUN 62, creatinine 6.9. Impression: Acute on chronic kidney disease status post bilateral kidney transplant. Likely has progression of kidney disease. His Creatinine has marginally improved to 6.9. He wishes to defer any treatment until the first of the year. We will put a standing order for labs on Thursday and until then with an office visit scheduled for the first of the year. Will monitor for uremic complaints. Blood pressure. Stable. Fluid volume. Expanded, improved. Anemia. Low, does not meet transfusion criteria. Electrolytes and acid base balance. Metabolic acidosis present.
== END 2019-07-21 18:09 | disposition home or self-care (01) | DRG 194 ==
LOC: P.ED 11:39 → P.MEDSURG 11:40 → SUATTDRO 11:40 → 3N 15:54
PROVIDERS: ATTEND Emergency Medicine